=== PATIENT | male | born 1980 | race Caucasian/White ===

== ENCOUNTER 2018-03-08 08:33 | Emergency (ER) | payer MEDICAID ==
[~2018-03-08] VITALS: Ht 167.6 cm; Wt 88.9 kg
[2018-03-08 08:43] VITALS: Ht 167.6 cm; Wt 88.9 kg
[2018-03-08 10:21] VITALS: BP 127/78
== END 2018-03-08 10:20 | disposition home or self-care (01) ==
LOC: ED 08:33
DX: M72.2 Plantar fascial fibromatosis (principal); F17.200 Nicotine dependence, unspecified, uncomplicated; M19.90 Unspecified osteoarthritis, unspecified site; Z88.0 Allergy status to penicillin
CPT/HCPCS: 99406; Q0092

== ENCOUNTER 2018-09-20 06:07 | Emergency (ER) | payer MEDICAID ==
[~2018-09-20] VITALS: Ht 172.7 cm; Wt 87.8 kg
[2018-09-20 06:12] VITALS: Ht 172.7 cm; Wt 87.8 kg
[2018-09-20 07:08] VITALS: BP 145/73
== END 2018-09-20 07:08 | disposition home or self-care (01) ==
LOC: ED 06:07
DX: H00.015 Hordeolum externum left lower eyelid (principal); M19.90 Unspecified osteoarthritis, unspecified site; Z88.0 Allergy status to penicillin

== ENCOUNTER 2018-10-25 21:04 | Emergency (ER) | payer MEDICAID ==
[~2018-10-25] VITALS: Ht 170.2 cm; Wt 88.9 kg
[2018-10-25 21:06] VITALS: Ht 170.2 cm; Wt 88.9 kg
[2018-10-25 22:29] VITALS: BP 129/79
== END 2018-10-25 22:29 | disposition home or self-care (01) ==
LOC: ED 21:04
DX: J06.9 Acute upper respiratory infection, unspecified (principal); M19.90 Unspecified osteoarthritis, unspecified site; Z88.0 Allergy status to penicillin
CPT/HCPCS: 87804